=== PATIENT | female | born 1990 | race Caucasian/White ===

== ENCOUNTER 2021-05-16 17:16 | Emergency (ER) | payer OTHER, SELFPAY ==
[2021-05-16 17:28] VITALS: BP 104/68; PULSE 116; RESP 18; TEMP 37.7; O2SAT 100
--- NOTE | 2021-05-16 17:52 | ED.EAR ---
HPI - Ear Problem General Chief complaint: Ear Stated complaint: Rt Ear Pain,Pain Rt side of Neck Time Seen by Provider: 05/16/21 17:45 Source: patient and RN notes reviewed Mode of arrival: ambulatory Limitations: no limitations History of Present Illness HPI Narrative: 30-year-old female presents with concern for right ear pain, sore throat. Reports symptoms have been worsening over the last several days. She reports headache, denies nasal congestion or rhinorrhea. Reports pain is radiating down her neck. She denies difficulty swallowing at this time or muffled voice. Reports she has been using Tylenol and ibuprofen. Reports she is breast-feeding. MD Complaint: ear pain Related Data Allergies Allergy/AdvReac Type Severity Reaction Status Date / Time No Known Allergies Allergy Verified 05/16/21 17:41 Review of Systems Review of Systems: CONSTITUTIONAL: Denies malaise, chills, sweats, or fever. EYES: Denies visual changes, redness, or discharge. ENT: Denies rhinorrhea, congestion, sinus pain. Reports right-sided otalgia and sore throat. CARDIOVASCULAR: Denies chest pain, palpitations, or edema. RESPIRATORY: Denies cough or dyspnea. GASTROINTESTINAL: Denies abdominal pain, nausea, vomiting, diarrhea SKIN: Denies rash or itching. MUSCULOSKELETAL: Denies myalgia. NEUROLOGIC: Reports headache. All systems reviewed & are unremarkable except as noted in HPI and below PMFSH Comments At time of signature, agree with nursing past medical, surgical, social and family history. There is no relevant family history pertinent to the presenting complaint Exam Narrative: GENERAL: Well-appearing, well-nourished, and in no acute distress. HEAD: Normocephalic EYES: PERRLA, conjunctivae clear ENT: Nares clear, no discharge. Mucous membranes moist. Left TM pearly alarcon with sharp light reflex, right TM cloudy with dull light reflex; no tragal tenderness. Oropharynx erythematous without lesions. Right tonsil enlarged with copious exudate, no drooling, no hoarseness, no trismus, uvula midline. NECK: Supple. No lymphadenopathy CHEST: Clear to auscultation, breath sounds equal. No wheezing, rhonchi, rales, or stridor. No respiratory distress, speaks in full sentences. HEART: Regular rate and rhythm. No murmur heard. SKIN: Warm, dry, no rash. NEURO: Alert and oriented x3. PSYCH: Normal mood and affect Course Course Emergency Course: Patient is aware of diagnosis, understands and agrees to treatment plan. Anticipatory guidance given. Patient agrees to follow-up as directed and is aware of reasons to seek care at the emergency department. Portions of this record may have been created with voice recognition software Vital Signs Vital signs: Vital Signs Temperature 99.8 F H 05/16/21 17:28 Pulse Rate 116 H 05/16/21 17:28 Respiratory Rate 18 05/16/21 17:28 Blood Pressure 104/68 05/16/21 17:28 Pulse Oximetry 100 05/16/21 17:28 Temperature 99.8 F H 05/16/21 17:28 Pulse Rate 116 H 05/16/21 17:28 Respiratory Rate 18 05/16/21 17:28 Blood Pressure 104/68 05/16/21 17:28 Pulse Oximetry 100 05/16/21 17:28 Reviewed. Medical Decision Making MDM Narrative Medical decision making narrative: Differential diagnosis considered: [place] virus, strep pharyngitis, allergic rhinitis, upper respiratory tract infection, sinusitis, rhinosinusitis, nasopharyngitis. viral pharyngitis, tonsillitis, otitis media, otitis externa, pneumonia, bronchitis, viral cough syndrome, viral syndrome, and influenza. Exam findings show no acute concerns or changes; patient is non-toxic appearing and is in no distress. Patient is appropriate for outpatient treatment and follow-up. Vital Signs Vital Signs: Vital Signs Temperature 99.8 F H 05/16/21 17:28 Pulse Rate 116 H 05/16/21 17:28 Respiratory Rate 18 05/16/21 17:28 Blood Pressure 104/68 05/16/21 17:28 Pulse Oximetry 100 05/16/21 17:28 Temperature 99.8 F H 05/16/21 17:28 Pu
== END 2021-05-16 18:05 | disposition home or self-care (01) ==
PROVIDERS: Emergency Provider Nurse Practitioner
DX: J03.90 Acute tonsillitis, unspecified (principal)
CPT/HCPCS: 87081; 87880; 99203; G0463